=== PATIENT | male | born 1960 | race Caucasian/White ===

== ENCOUNTER 2016-11-30 11:26 | Day surgery (SDC) | payer OTHER ==
[2016-11-30] MEDS ORDERED: fentaNYL 100 MCG/2 ML INJ IVP ONE (11:29)
[2016-11-30] MEDS ORDERED: MIDAZOLAM 2 MG/2 ML VIAL IVP ONE (11:29)
[2016-11-30] MEDS ORDERED: NS 500 ML IV ONE (11:29)
[2016-11-30] MEDS ORDERED: PROPOFOL 200 MG/20 ML VIAL IVP ONE (11:29)
[2016-11-30] MEDS ORDERED: BENZOCAINE UNIT DOSE SPRAY HURRICAINE MM ONE (11:29)
--- NOTE | 2016-11-30 11:42 | CPEKG ---
Heart Rate: 70 RR Interval: 857 P-R Interval: 232 QRSD Interval: 98 QT Interval: 404 QTC Interval: 436 P [place]: 68 QRS [place]: 4 T Wave [place]: 28 EKG Severity - ABNORMAL ECG - EKG Impression: SINUS RHYTHM EKG Impression: FIRST DEGREE AV BLOCK EKG Impression: PROBABLE LEFT ATRIAL ABNORMALITY EKG Impression: LOW VOLTAGE IN FRONTAL LEADS Electronically Signed By: Karen Grubbs 30-Nov-2016 11:53:24
== END 2016-11-30 11:59 | disposition home or self-care (01) ==
LOC: FCATH 11:26
PROVIDERS: ATTEND Internal Medicine Interventional Cardiology
DX: I48.1 Persistent atrial fibrillation (principal); Z53.09 Procedure and treatment not carried out because of other contraindication; I42.9 Cardiomyopathy, unspecified; Z79.01 Long term (current) use of anticoagulants

== ENCOUNTER 2018-07-24 15:05 | Day surgery (SDC) | payer OTHER ==
[2018-07-24] MEDS ORDERED: fentaNYL 100 MCG/2 ML INJ IVP ONE (15:11)
[2018-07-24] MEDS ORDERED: NS 500 ML IV ONE (15:11)
[2018-07-24] MEDS ORDERED: ATROPINE SULFATE 1 MG/10 ML SYR IVP ONE (15:11)
[2018-07-24] MEDS ORDERED: MIDAZOLAM 2 MG/2 ML VIAL IVP ONE (15:11)
[2018-07-24 15:50] LABS: INR 1.38 (0.83-1.16); PROTIME(PATIENT) 17.1 SEC (12.0-15.0)
--- NOTE | 2018-07-24 16:15 | CPEKG ---
Test Reason : OPEN Blood Pressure : / mmHG Vent. Rate : 121 BPM Atrial Rate : 192 BPM P-R Int : 114 ms QRS Dur : 102 ms QT Int : 361 ms P-R-T Axes : 000 -10 020 degrees QTc Int : 513 ms Atrial fibrillation Inferior infarct, old Prolonged QT interval Confirmed by Kirk Shaw ([id number]) on 07/24/2018 4:14:46 PM Referred By: Confirmed By:Kirk Shaw
== END 2018-07-24 17:10 | disposition home or self-care (01) ==
LOC: FCATH 15:05
PROVIDERS: ATTEND Internal Medicine Cardiovascular Disease
DX: I48.91 Unspecified atrial fibrillation (principal); Z53.09 Procedure and treatment not carried out because of other contraindication